=== PATIENT | female | born 1945 | race Caucasian/White ===

== ENCOUNTER 2016-09-28 07:31 | Inpatient (IN) | payer MEDICARE, BC ==
[~2016-09-28 07:31] MED LIST: AMITRIPTYLINE H50 M1 PO; ATENOLOL25 MG PO; CLARITIN10 M2 PO; CLARITIN10 M6 PO; CLINDAMYCIN HC150 M1 PO; ELAVIL50 MG PO; ESTRACE0.5 M2 PO; ESTRADIOL0.5 M1 PO; ETODOLAC400 MG PO; FLEX A MIN; LEVOTHYROXINE50 MCG PO; LOVASTATIN20 M2 PO; MIRALAX17 G1 PO; MOBIC7.5 M2 PO; OMEPRAZOLE40 M1 PO; OMEPRAZOLE40 M2 PO; RELPAX20 M1 PO; RELPAX20 MG PO; SENOKOT-S TABLE1 TAB PO; SERTRALINE HCL PO; SERTRALINE HCL100 M5 PO; SYNTHROID75 MC1 PO; TENORMIN25 M1 PO; TRAMADOL HCL50 MG PO; TYLENOL325 M1 PO; VITAMIN B-121000 MC1 PO; VITAMIN B121000 MCG PO; VITAMIN D250000 UNI1 PO; ZOFRAN IV
[2016-09-28 08:34] LABS: INR 0.9 INR (0.9-1.1)
[2016-09-28] MEDS ORDERED: SYSTANE 0.3-0.415 ML OP (08:47)
[2016-09-29 05:49] LABS: BASO % 0.1 % (0-2); HCT-HEMATOCRIT 29.4 % (34.0-49.0); HGB-HEMOGLOBIN 9.7 gm/dl (12.0-15.5); IMMATURE GRANULOCYTES ABSOLUTE 0.04 tho/cmm (0-0.03); IMMATURE GRANULOCYTES PERCENT 0.3 % (0-0.3); LYMPH % 8.3 % (20-45); MCH (MEAN CORPUSCULAR HGB) 30.2 pg (28.0-32.0); MCV (MEAN CELL VOLUME) 91.6 fl (82.0-96.0); MEAN PLATELET VOLUME 11.8 cmc (9.4-12.4); MONO % 8.4 % (0-12); NEUTROPHIL ABSOLUTE COUNT 9.6 tho/cmm (1.6-8.0); NEUTROPHIL-AUTOMATED 9.6 tho/cmm (1.6-8.0); NEUTROPHILS % 82.9 % (40-80); PLATELET COUNT 161 tho/cmm (150-450); RED BLOOD COUNT 3.21 mil/cmm (4.00-5.20); RED CELL DISTRIBUTION WIDTH 13.4 % (12.4-16.4); WHITE BLOOD COUNT 11.6 tho/cmm (4.0-10.0)
[2016-10-01] MEDS ORDERED: BAYER CHEWABLE81 M2 PO (09:37)
[2016-10-01] MEDS ORDERED: ULTRAM50 M1 PO (09:39)
[2016-10-01] MEDS ORDERED: TYLENOL325 M2 PO (09:41)
[2016-10-01] MEDS ORDERED: SENOKOT-S TABL1 EACH PO (09:44)
[2016-10-01] MEDS ORDERED: ZOFRAN4 M2 PO (09:44)
[2016-10-01] MEDS ORDERED: OXYCODONE HCL5 M1 (09:46)
== END 2016-10-01 10:59 | DRG 470 ==
LOC: SHSA 07:31 → ORE 08:58 → PACU 10:46 → 5EA 12:05
PROVIDERS: ADMIT Orthopaedic Surgery Foot and Ankle Surgery
PROC: 0SRD0J9 Replacement of Left Knee Joint with Synthetic Substitute, Cemented, Open Approach (ICD-10-PCS; principal; 2016-09-28)
DX: M17.12 Unilateral primary osteoarthritis, left knee (principal); I10 Essential (primary) hypertension; E66.9 Obesity, unspecified; E03.9 Hypothyroidism, unspecified; K21.9 Gastro-esophageal reflux disease without esophagitis; Z88.0 Allergy status to penicillin; Z88.2 Allergy status to sulfonamides; Z68.37 Body mass index [BMI] 37.0-37.9, adult; M21.162 Varus deformity, not elsewhere classified, left knee; Z79.82 Long term (current) use of aspirin; Z96.641 Presence of right artificial hip joint; R51 Headache
CPT/HCPCS: C1713; C1776; J0171; J1885; J2270; J2405; J2795; J7030